=== PATIENT | male | born 1980 ===

== ENCOUNTER 2020-06-14 19:17 | Emergency (ER) | payer SELFPAY ==
[~2020-06-14] VITALS: Ht 180.3 cm; Wt 91.0 kg
--- NOTE | 2020-06-14 19:17 | NUR ---
INITIAL PT CONTACT. PT BIBA C/O PYSCHOSIS. FOUND ON [place] PROPERTY, PER EMS NOT COOPERATIVE WITH PD, THEN BECAME INGREASINGLY AGGRESSIVE, PER EMS "NOT COOPRATIVE AND DISPLAYING SIGNS OF PSYCOSIS". MEDICATED WITH 5MG HALDOL AND 5 VERSED ENROUTE. HX DEPRESSION, ANXIETY AND SCHIZOPHRENIA. PT SLEEPING UPON ARRIVAL TO ED. RESPIRATIONS EQUAL AND UNLABORED. PT A&OX2. PT MOVED FROM EMS [facility] TO ED [facility]. PLACED ON CONTINUOUS PULSE OX AND CARDIAC MONITORING. AWAITING ERP.
--- NOTE | 2020-06-14 20:03 | NUR ---
PT SLEEPING SUPINE ON GURNEY. RESPIRATIONS EQUAL AND UNLABORED. PT A&OX2, ABLE TO FOLLOW COMMANDS AND OPEN EYES WHEN ASKED. PT REMAINS ON CONTINUOUS PULSE OX AND CARDIAC MONITORING. ERP AT BEDSIDE.
[2020-06-14 20:28] LABS: BASOPHILS % (AUTO) 1 % (0-1); EOSINOPHILS % (AUTO) 3 % (1-7); LYMPHOCYTES % (AUTO) 28 % (22-44); MEAN CORPUSCULAR HEMOGLOBIN 30.9 pg (27.5-34.5); MEAN PLATELET VOLUME 8.4 fL (7.4-10.4); MONOCYTES % (AUTO) 11 % (2-9); NEUTROPHILS % (AUTO) 58 % (42-75); PLATELET COUNT 227 x10^3/uL (130-400); RED CELL DISTRIBUTION WIDTH 13.2 % (9.4-14.8)
[2020-06-14 20:29] LABS: MD NO
[2020-06-14 20:39] LABS: ANION GAP 7 mmol/L (5-15); CALCIUM 8.8 mg/dL (8.5-10.1); CHLORIDE 110 mmol/L (98-107); CREATININE 1.06 mg/dL (0.7-1.3)
[2020-06-14 20:40] LABS: ALANINE AMINOTRANSFERASE 35 U/L (12-78); ALBUMIN 3.7 g/dL (3.4-5.0); SALICYLATE LEVEL 1.8 mg/dL (2.8-20.0)
[2020-06-14 20:42] LABS: ALKALINE PHOSPHATASE 78 U/L (45-117); BILIRUBIN,TOTAL 1.1 mg/dL (0.2-1.0); TOTAL PROTEIN 6.9 g/dL (6.4-8.2)
[2020-06-14 23:00] VITALS: BP 122/74
--- NOTE | 2020-06-15 01:44 | NUR ---
iv dc cath intact, dc home with instruct. pt verbalizes understanding of instruct and f/u.
== END 2020-06-15 01:46 | disposition home or self-care (01) ==
LOC: ED 06-15 01:30
DX: F15.150 Other stimulant abuse with stimulant-induced psychotic disorder with delusions (principal); F17.200 Nicotine dependence, unspecified, uncomplicated; Z72.9 Problem related to lifestyle, unspecified
CPT/HCPCS: 36415; 80053; 80299; 80320; 80329; 85025; 99283; G0480